=== PATIENT | male | born 1960 | race Caucasian/White ===

== ENCOUNTER → 2018-06-30 | Outpatient (CLI) | payer OTHER | LOC: ZCOL.LAB 16:50 | DX: J32.4 Chronic pansinusitis (principal) ==

== ENCOUNTER 2022-03-09 08:21 | Outpatient (RCR) | payer OTHER | END 2022-03-16 | disposition home or self-care (01) | LOC: WSST | DX: R13.10 Dysphagia, unspecified (principal) ==